=== PATIENT | male | born 1985 | race Caucasian/White ===

== ENCOUNTER 2017-01-30 00:26 | Emergency (ER) | payer OTHER ==
[~2017-01-30] VITALS: Ht 190.5 cm; Wt 102.1 kg
--- NOTE | 2017-01-30 01:13 | PHYS DOC ---
Past Medical History Past Medical History: Hypertension Past Surgical History: Tonsillectomy Additional Information: FORMER X 3YRS Alcohol Use: Occasionally Drug Use: None Adult General Chief Complaint Chief Complaint: CHEST PAIN HPI HPI Patient is a 31 year old male who presents with complaint of chest pain for the past 2-3 days. Patient states that his symptoms came on gradually but have been persistent over this time. Patient states that his pain level is currently 3 out of 10. Patient describes the pain as pressure and tightness which goes across his chest. Patient states that the pain seems to have migrated towards his left shoulder over the past 24 hours. This caused the patient concern which prompted him to come to the emergency department tonight for evaluation. Patient states his pain does not seem to worsen with exertion. Patient states that he has had mild associated shortness of breath but denies any associated nausea or diaphoresis. Patient states that he has had history of tobacco use and has history of hypertension. Patient denies known family history of coronary artery disease. The patient states that he has taken [id number] medication including antihistamines and "flu remedy" which has not helped with his symptoms. Patient does admit to increase in activity prior to onset of symptoms as he was moving heavy pallets with fireworks during January. Patient also admitted to alcohol use during that time prior to onset of symptoms. Review of Systems Review of Systems Constitutional: Denies fever or chills [] Eyes: Denies change in visual acuity, redness, or eye pain [] HENT: Denies nasal congestion or sore throat [] Respiratory: Denies cough or shortness of breath [] Cardiovascular: Chest pain [] GI: Denies abdominal pain, nausea, vomiting, bloody stools or diarrhea [] : Denies dysuria or hematuria [] Musculoskeletal: Denies back pain or joint pain [] Integument: Denies rash or skin lesions [] Neurologic: Denies headache, focal weakness or sensory changes [] Current Medications Current Medications Current Medications Medications (Trade) Dose Ordered Sig/Nancy Start Time Stop Time Status Last Admin Dose Admin Aspirin (Children'S Aspirin) 324 mg 1X ONCE 01/30/17 01:30 01/30/17 01:31 DC 01/30/17 01:26 324 MG Clonidine HCl (Catapres) 0.1 mg 1X ONCE 01/30/17 01:30 01/30/17 01:31 DC 01/30/17 01:25 0.1 MG Ketorolac Tromethamine (Toradol) 30 mg 1X ONCE 01/30/17 02:30 01/30/17 02:31 DC 01/30/17 02:31 30 MG Sodium Chloride 1,000 ml @ 1,000 mls/hr Q1H 01/30/17 01:30 01/30/17 02:29 DC 01/30/17 01:25 1,000 MLS/HR Allergies Allergies Allergies Coded Allergies Type Severity Reaction Last Updated Verified Sulfa (Sulfonamide Antibiotics) Allergy Intermediate Rash 01/30/17 Yes Physical Exam Physical Exam Constitutional: Well developed, well nourished, no acute distress, non-toxic appearance. [] HENT: Normocephalic, atraumatic, bilateral external ears normal, oropharynx moist, no oral exudates, nose normal. [] Eyes: PERRLA, EOMI, conjunctiva normal, no discharge. [] Neck: Normal range of motion, no tenderness, supple, no stridor. [] Cardiovascular:Heart rate regular rhythm, no murmur [] Lungs & Thorax: Bilateral breath sounds clear to auscultation [] Abdomen: Bowel sounds normal, soft, no tenderness, no masses, no pulsatile masses. [] Skin: Warm, dry, no erythema, no rash. [] Back: No tenderness, no CVA tenderness. [] Extremities: No tenderness, no cyanosis, no clubbing, ROM intact, no edema. [] Neurologic: Alert and oriented X 3, normal motor function, normal sensory function, no focal deficits noted. [] Current Patient Data Vital Signs Vital Signs Date Time Temp Pulse Resp B/P (MAP) Pulse Ox O2 Delivery O2 Flow Rate FiO2 01/30/17 02:30 56 136/86 (103) 97 Room Air 01/30/17 01:30 12 01/30/17 00:39 97.8 97.8 Lab Values Laboratory Tests Test 01/30/17 00:30 01/30/17 01:29 White Blood Count 9.1 x10^3/uL (4.0-11.0) Red Blood Count 5.05 x10^6/uL (4.30-5.70) Hemoglobin 15.0 g/dL (13.0-17.5) Hematocrit 43.7 % (39.0-53.0) Mean Corpuscular Volume 87 fL (79-100) Mean Corpuscular Hemoglobin 30 pg (25-35) Mean Corpuscular Hemoglobin Concent 34 g/dL (31-37) Red Cell Distribution Width 12.6 % (11.5-14.5) Platelet Count 236 x10^3/uL (140-400) Neutrophils (%) (Auto) 44 % (31-73) Lymphocytes (%) (Auto) 46 % (24-48) Monocytes (%) (Auto) 8 % (0-9) Eosinophils (%) (Auto) 1 % (0-3) Basophils (%) (Auto) 0 % (0-3) Neutrophils # (Auto) 4.0 x10^3uL (1.8-7.7) Lymphocytes # (Auto) 4.2 x10^3/uL (1.0-4.8) Monocytes # (Auto) 0.8 x10^3/uL (0.0-1.1) Eosinophils # (Auto) 0.1 x10^3/uL (0.0-0.7) Basophils # (Auto) 0.0 x10^3/uL (0.0-0.2) Sodium Level 141 mmol/L (136-145) Potassium Level 3.8 mmol/L (3.5-5.1) Chloride Level 102 mmol/L (98-107) Carbon Dioxide Level 31 mmol/L (21-32) Anion Gap 8 (6-14) Blood Urea Nitrogen 17 mg/dL (8-26) Creatinine 1.2 mg/dL (0.7-1.3) Estimated GFR (Cockcroft-Gault) 69.7 Glucose Level 96 mg/dL (70-99) Calcium Level 9.2 mg/dL (8.5-10.1) Magnesium Level 2.3 mg/dL (1.8-2.4) Total Bilirubin 0.4 mg/dL (0.2-1.0) Direct Bilirubin 0.1 mg/dL (0.0-0.2) Aspartate Amino Transferase (AST) 16 U/L (15-37) Alanine Aminotransferase (ALT) 30 U/L (16-63) Alkaline Phosphatase 63 U/L (46-116) Creatine Kinase 88 U/L (39-308) Creatine Kinase MB (Mass) 1.0 ng/mL (0.0-3.6) Creatine Kinase MB Relative Index 1.1 % (0-4) Troponin I Quantitative < 0.017 ng/mL (0.000-0.055) Total Protein 7.9 g/dL (6.4-8.2) Albumin 4.2 g/dL (3.4-5.0) Urine Collection Type Unknown Urine Color Yellow Urine Clarity Clear Urine pH 7.0 Urine Specific [place] 1.025 Urine Protein Negative mg/dL (NEG-TRACE) Urine Glucose (UA) Negative mg/dL (NEG) Urine Ketones (Stick) Negative mg/dL (NEG) Urine Blood Negative (NEG) Urine Nitrite Negative (NEG) Urine Bilirubin Negative (NEG) Urine Urobilinogen Dipstick 0.2 mg/dL (0.2 mg/dL) Urine Leukocyte Esterase Negative (NEG) Urine RBC Occ /HPF (0-2) Urine WBC 0 /HPF (0-4) Urine Squamous Epithelial Cells Occ /LPF Urine Bacteria 0 /HPF (0-FEW) Urine Mucus Slight /LPF Urine Opiates Screen Neg (NEG) Urine Methadone Screen Neg (NEG) Urine Barbiturates Neg (NEG) Urine Phencyclidine Screen Neg (NEG) Urine Amphetamine/Methamphetamine Neg (NEG) Urine Benzodiazepines Screen Neg (NEG) Urine Cocaine Screen Neg (NEG) Urine Cannabinoids Screen Neg (NEG) Urine Ethyl Alcohol Neg (NEG) Laboratory Tests 01/30/17 00:30 Laboratory Tests 01/30/17 00:30 EKG EKG Interpreted by me: Heart rate 79, sinus rhythm, normal intervals, normal axis, no acute ST/T-wave abnormalities present [] Radiology/Procedures Radiology/Procedures Two-view chest x-ray interpreted by me: Denies chest pain or edema [] Course & Med Decision Making Course & Med Decision Making Pertinent Labs and Imaging studies reviewed. (See chart for details) Patient given aspirin and IV fluids in the emergency department. Patient's lab work is unremarkable. Due to sustained pain for the past 3 days coupled with low suspicion for acute coronary syndrome, one set of cardiac enzymes was obtained and were found to be normal. The patient's pain does not appear to be cardiac related. Patient's symptoms most likely due to deep intercostal muscle pain. The patient will be continued on Naprosyn and Flexeril for outpatient treatment. The patient will also be referred to Dr. Rankin of cardiology for outpatient follow-up and be evaluated for possible need for cardiac stress testing. The patient's blood pressure was found to be elevated and was treated with oral clonidine per the patient's usual dose. The patient's blood pressure was rechecked in the emergency department and consistently found to be between 120 and 130 systolic. Advised patient to continue daily use of his blood pressure medication as has been previously prescribed. Advised return emergency department for any worsening symptoms. Patient voiced understanding and in agreement with treatment plan. Dragon Disclaimer Dragon Disclaimer This electronic medical record was generated, in whole or in part, using a voice recognition dictation system. Departure Departure Impression: Primary Impression: Chest pain Additional Impression: Essential hypertension Disposition: HOME, SELF-CARE Condition: IMPROVED Referrals: KODI NEWMAN (PCP) VIVIEN RANKIN MD Patient Instructions: Chest Pain (Nonspecific) Additional Instructions: Follow-up with Dr. Rankin in 2-3 days for outpatient evaluation and possible cardiac stress testing as deemed necessary by the risk management specialist. Return to the emergency department for any worsening symptoms. Scripts Cyclobenzaprine Hcl (CYCLOBENZAPRINE HCL) 10 Mg Tablet 1 TAB PO QHS Y for MUSCLE PAIN, #10 TAB Prov: ALEX VOGEL MD 01/30/17 Naproxen (NAPROSYN) 500 Mg Tablet 500 MG PO BID Y for PAIN, #15 TAB Prov: ALEX VOGEL MD 01/30/17 Problem Qualifiers Primary Impression: Chest pain Chest pain type: other chest pain Qualified Codes: R07.89 - Other chest pain ALEX VOGEL MD Jan 30, 2017 01:12
[2017-01-30] MEDS ORDERED: IV NORMAL SALINE 1000ML BAG 1,000 ML IV SCH (01:30)
[2017-01-30] MEDS ORDERED: cloNIDine HCL 0.1 MG TABLET PO ONE (01:30)
[2017-01-30] MEDS ORDERED: ASPIRIN CHEWABLE 81 MG TABLET. PO ONE (01:30)
[2017-01-30 01:38] LABS: BILIRUBIN,URINE NEGATIVE (NEG); GLUCOSE,URINE NEGATIVE (NEG); NITRITE,URINE NEGATIVE (NEG); PROTEIN,URINE NEGATIVE (NEG-TRACE); UROBILINOGEN,URINE 0.2 mg/dL (0.2 mg/dL)
[2017-01-30 01:38] LABS: BASO % 0 % (0-3); EOS % 1 % (0-3); HEMATOCRIT 43.7 % (39.0-53.0); LYMPH # 4.2 x10^3/uL (1.0-4.8); LYMPH % 46 % (24-48); MEAN CORPUSCULAR HEMOGLOBIN 30 pg (25-35); MEAN CORPUSCULAR HGB CONC 34 g/dL (31-37); MEAN CORPUSCULAR VOLUME 87 fL (79-100); MONO % 8 % (0-9); NEUT % 44 % (31-73); PLATELET COUNT 236 x10^3/uL (140-400); RED BLOOD COUNT 5.05 x10^6/uL (4.30-5.70); RED CELL DISTRIBUTION WIDTH 12.6 % (11.5-14.5); WHITE BLOOD COUNT 9.1 x10^3/uL (4.0-11.0)
[2017-01-30 01:42] LABS: BACTERIA,URINE 0 /HPF (0-FEW); RBC,URINE OCC /HPF (0-2); SQUAMOUS EPITHELIAL CELL,UR OCC /LPF; WBC,URINE 0 /HPF (0-4)
[2017-01-30 01:44] LABS: BARBITURATES NEG (NEG); BENZODIAZEPINES NEG (NEG); CANNABINOIDS NEG (NEG); COCAINE NEG (NEG); METHADONE NEG (NEG); OPIATES NEG (NEG); PHENCYCLIDINE NEG (NEG)
[2017-01-30 01:48] LABS: CALCIUM 9.2 mg/dL (8.5-10.1); CREATININE 1.2 mg/dL (0.7-1.3); GFR 69.7; POTASSIUM 3.8 mmol/L (3.5-5.1)
[2017-01-30 01:53] LABS: ALBUMIN 4.2 g/dL (3.4-5.0); DIRECT BILIRUBIN 0.1 mg/dL (0.0-0.2); MAGNESIUM 2.3 mg/dL (1.8-2.4); TOTAL BILIRUBIN 0.4 mg/dL (0.2-1.0); TOTAL PROTEIN 7.9 g/dL (6.4-8.2)
[2017-01-30 02:30] VITALS: BP 136/86
[2017-01-30] MEDS ORDERED: KETOROLAC TROMETHAMINE 30 MG/ML INJ. IV ONE (02:30)
[2017-01-30] MEDS ORDERED: CYCL10TA2 PO (02:32)
[2017-01-30] MEDS ORDERED: NAPR500T PO (02:32)
--- NOTE | 2017-01-30 07:43 | RAD ---
EXAM: CHEST 2 VIEWS History: Chest pain for 4 days COMPARISON: None available. TECHNIQUE: PA and lateral chest radiographs FINDINGS: The cardiomediastinal silhouette is within normal limits. The lungs are clear bilaterally. The costophrenic sulci are clear and well demarcated bilaterally. IMPRESSION: No radiographic evidence of an acute cardiopulmonary abnormality.
--- NOTE | 2017-01-30 11:39 | EKG ---
[facility] [address] [place] [id number] Test Date: 2017-01-30 Test Time: 00:32:39 Pat Name: ALICIA CHUNG Department: Room: Gender: Science Professor: TOOTIE : 1985 Requested By: ALEX VOGEL Order Number: [id number] Reading MD: Measurements Intervals [place] Rate: 79 P: 62 NV: 146 QRS: 66 QRSD: 86 T: 56 QT: 368 QTc: 423 Interpretive Statements SINUS RHYTHM NORMAL ECG RI6.01 Unconfirmed report No previous ECG available for comparison
== END 2017-01-30 02:45 | disposition home or self-care (01) ==
LOC: ER 00:26
DX: R07.89 Other chest pain (principal); I10 Essential (primary) hypertension; R06.02 Shortness of breath; Z87.891 Personal history of nicotine dependence; Z88.2 Allergy status to sulfonamides; Z79.82 Long term (current) use of aspirin
CPT/HCPCS: 36415; 71020; 80048; 80076; 80305; 80320; 81001; 82553; 83735; 84484; 85027; 93005; 96361; 96374; 99285; J1885; J7030; G0481